=== PATIENT | male | born 1975 | race Caucasian/White ===

== ENCOUNTER 2020-01-17 17:37 | Inpatient (IN) | payer SELFPAY ==
[~2020-01-17] VITALS: Ht 182.9 cm; Wt 83.5 kg
[2020-01-17 18:39] LABS: Basophils # (auto) 0.1 10 ^3/uL (0-0.2); Basophils % (auto) 0.9 % (0.0-2.0); Eosinophils # (auto) 0.2 10 ^3/uL (0-0.8); Eosinophils % (auto) 1.9 % (0.0-7.0); Hematocrit 44.6 % (41.0-53.0); Hemoglobin 15.2 g/dL (13.5-17.5); Lymphocytes # (auto) 1.3 10 ^3/uL (0.4-5.4); Lymphocytes % (auto) 13.7 % (10.0-50.0); Mean Corpuscular Hemoglobin 30.7 pg (28.0-32.0); Mean Corpuscular Volume 90.2 fL (80.0-100.0); Monocytes # (auto) 0.5 10 ^3/uL (0-1.3); Monocytes % (auto) 5.1 % (0.0-12.0); Neutrophils # (auto) 7.3 10 ^3/uL (1.6-8.6); Neutrophils % (auto) 78.4 % (37.0-80.0); Nucleated Red Blood Cells % 0.1 %; Platelet Count (auto) 293 10^3/uL (140-450); Red Blood Cells 4.95 10^6/uL (4.5-5.90); Red Cell Distribution Width 13.2 % (11.8-14.3); White Blood Cell 9.4 10^3/uL (4.4-10.8)
[2020-01-17 18:59] LABS: Albumin 3.8 g/dL (3.4-5.0); BUN/Creatinine Ratio 12.3; Calcium 8.8 mg/dL (8.5-10.1)
[2020-01-17 19:02] LABS: Bilirubin, Total 0.6 mg/dL (0.2-1.0); Total Protein 7.8 g/dL (6.4-8.2)
[2020-01-17 19:09] LABS: Urine WBC None Seen /hpf (0 - 3)
[2020-01-17 19:19] LABS: Urine Amorphous Crystal FEW /hpf (None Seen); Urine Bacteria NONE SEEN /hpf (None Seen); Urine Blood 2+ /uL (Negative); Urine Mucus FEW (None Seen); Urine Specific Gravity 1.025 (1.001-1.035)
[2020-01-17] MEDS ORDERED: SODIUM CHLORIDE 0.9% 1,000 ML IVB ONE (20:11)
[2020-01-17] MEDS ORDERED: KETOROLAC TROMETH 30 MG/ML 1ML VIAL IV ONE (20:15)
[2020-01-17] MEDS ORDERED: ONDANSETRON HCL 4 MG/2 ML VIAL IV ONE (20:15)
[2020-01-17 20:50] LABS: Magnesium 2.5 mg/dL (1.6-2.6)
[2020-01-17] MEDS ORDERED: TAMSULOSIN HYDROCHLORIDE 0.4 MG CAP PO ONE (22:00)
[2020-01-17] MEDS ORDERED: LORazepam 0.5 MG TAB PO PRN (22:30)
[2020-01-17] MEDS ORDERED: DOCUSATE SOD 100 MG CAP PO PRN (22:30)
[2020-01-17] MEDS ORDERED: ACETAMINOPHEN 325 MG TAB PO PRN (22:30)
[2020-01-18] VITALS (7 sets, daily range): BP systolic 109–137; BP diastolic 59–86
[2020-01-18] MEDS: FINASTERIDE 5 MG TAB PO SCH ×2 (00:25→09:29)
[2020-01-18] MEDS: SODIUM CHLORIDE 0.9% 1,000 ML IV SCH ×5 (00:26→17:25)
--- NOTE | 2020-01-18 01:00 | NUR ---
Patient admitted to room 296A Patient A&Ox4, respirations even and non-labored. Patient c/o 7/10 pain to his abdomen radiating to his low back. Assisted patient into gown/socks. Noted IV to the left AC, 20g. Was unable to locate an IV pump, obtained a dial-a-flow and set at 200 ml/hr per EMAR. Orientated patient to room, call light, bathroom, and bed controls. Bed in lowest locked position with 2 side rails up, call light within reach, will continue to monitor Q1hr and PRN.
--- NOTE | 2020-01-18 03:20 | NUR ---
Pain Patient c/o 8/10 low back/abdominal pain. Administered Dilaudid 0.5 mg and zofran 4 mg per EMAR. Will continue to monitor.
[2020-01-18] MEDS: HYDROmorphone HCL 2 MG/ML VL IV PRN ×3 (03:28→11:12)
[2020-01-18] MEDS: ONDANSETRON HCL 4 MG/2 ML VIAL IV PRN ×2 (03:28→08:31)
--- NOTE | 2020-01-18 03:30 | NUR ---
Doty catheter insertion Inserted 16f Doty catheter per physician orders using sterile technique. Attached to thigh, bag hung below patient. Patient tolerated well.
--- NOTE | 2020-01-18 04:10 | NUR ---
Pain reassessed Patient resting with eyes closed, no s/s of distress or SOB. Will continue to monitor.
[2020-01-18 06:51] LABS: Basophils # (auto) 0 10 ^3/uL (0-0.2); Basophils % (auto) 0.2 % (0.0-2.0); Eosinophils # (auto) 0 10 ^3/uL (0-0.8); Eosinophils % (auto) 0.2 % (0.0-7.0); Hematocrit 42.4 % (41.0-53.0); Hemoglobin 14.2 g/dL (13.5-17.5); Lymphocytes # (auto) 1.6 10 ^3/uL (0.4-5.4); Lymphocytes % (auto) 12.5 % (10.0-50.0); Mean Corpuscular Hemoglobin 30.3 pg (28.0-32.0); Mean Corpuscular Hgb Conc. 33.4 g/dL (32.0-36.0); Mean Corpuscular Volume 90.6 fL (80.0-100.0); Monocytes # (auto) 1.2 10 ^3/uL (0-1.3); Monocytes % (auto) 9.4 % (0.0-12.0); Neutrophils % (auto) 77.7 % (37.0-80.0); Platelet Count (auto) 290 10^3/uL (140-450); Red Blood Cells 4.68 10^6/uL (4.5-5.90); Red Cell Distribution Width 13.5 % (11.8-14.3); White Blood Cell 12.8 10^3/uL (4.4-10.8)
--- NOTE | 2020-01-18 07:05 | NUR ---
Pain Patient c/o 8/10 abdominal and low back pain. Administered Dilaudid 0.5 mg per EMAR.
--- NOTE | 2020-01-18 07:10 | NUR ---
Closing shift note Administered pain medication to patient per EMAR. Patient lying still, no SOB or s/s of distress at this time. Endorsed care to day shift RNCatalina.
[2020-01-18 07:15] LABS: Potassium 4.1 mmol/L (3.5-5.1)
[2020-01-18 07:30] LABS: Calcium 7.9 mg/dL (8.5-10.1)
[2020-01-18] MEDS ORDERED: TAMSULOSIN HYDROCHLORIDE 0.4 MG CAP PO SCH (10:00)
[2020-01-18] MEDS: HYDROcodone-ACET 5/325MG TAB PO PRN ×2 (10:44→21:17)
--- NOTE | 2020-01-18 14:52 | NUR ---
patient states he feels complete relief of pain, like the stone might have passed. No stone present in the harrison that can be seen at this time.
[2020-01-18] MEDS ORDERED: cefTRIAXone 1GM/50ML D5W 50 ML IV ONE (16:45)
[2020-01-18] MEDS: CALCIUM CARB 500 MG CHEW TAB PO PRN ×2 (17:00→21:18)
--- NOTE | 2020-01-18 17:15 | NUR ---
harrison discontinued, patient tolerated well. Balloon intact upon removal. Patient used urinal right after removal, approximately 50ml output.
--- NOTE | 2020-01-18 17:17 | NUR ---
WATCH REPAIRER APPRENTICE notified to strain all urine, and patient notified as well, both verbalized understanding.
--- NOTE | 2020-01-18 21:17 | NUR ---
Pain Patient c/o 5/10 pain to the lower abdomin. Administered [place] 5/325 mg per EMAR. Will continue to monitor.
--- NOTE | 2020-01-18 21:45 | NUR ---
Pain reassessed Patient stated that he feels better. Currently 0/10 pain. Will continue to monitor.
--- NOTE | 2020-01-18 23:00 | NUR ---
PATIENT SIGNED OUT AMA Patient stated that he wanted to go home and that he felt fine now. He further stated that he could not stay and needed to go home to be with his children and care for his mother. A discussion regarding the risks/dangers of leaving before the physician(s) could see him and the risks of leaving due to his condition took place. The patient verbalized understanding but still wanted to sign out of the hospital AMA. AMA was signed and the charge nurse was notified. IV was removed with the catheter intact. Patient had his belongings with him. Patient's family waiting downstairs.
[2020-01-19] MEDS ORDERED: cefTRIAXone 1GM/50ML D5W 50 ML IV SCH (09:00)
== END 2020-01-18 23:57 | disposition left against medical advice (07) | DRG 690 ==
LOC: ER 17:37 → WEST WING 17:38
PROVIDERS: ADMIT Hospitalist; ATTEND Hospitalist
DX: N13.6 Pyonephrosis (principal); F17.210 Nicotine dependence, cigarettes, uncomplicated; N17.0 Acute kidney failure with tubular necrosis; N18.9 Chronic kidney disease, unspecified; Z53.29 Procedure and treatment not carried out because of patient's decision for other reasons
CPT/HCPCS: 36415; 71045; 74176; 80048; 80053; 81001; 82150; 83690; 83735; 85025; 87086; G0378; J0696; J1885; J2405

== ENCOUNTER 2020-01-20 23:51 | Emergency (ER) | payer SELFPAY ==
[~2020-01-20] VITALS: Ht 182.9 cm; Wt 77.1 kg
[2020-01-21 01:38] LABS: Basophils # (auto) 0.1 10 ^3/uL (0-0.2); Basophils % (auto) 0.9 % (0.0-2.0); Eosinophils # (auto) 0.1 10 ^3/uL (0-0.8); Eosinophils % (auto) 0.6 % (0.0-7.0); Hematocrit 35.9 % (41.0-53.0); Hemoglobin 12.3 g/dL (13.5-17.5); Lymphocytes # (auto) 1.2 10 ^3/uL (0.4-5.4); Lymphocytes % (auto) 12.4 % (10.0-50.0); Mean Corpuscular Hemoglobin 30.6 pg (28.0-32.0); Mean Corpuscular Hgb Conc. 34.2 g/dL (32.0-36.0); Mean Corpuscular Volume 89.5 fL (80.0-100.0); Monocytes # (auto) 0.7 10 ^3/uL (0-1.3); Monocytes % (auto) 7.8 % (0.0-12.0); Neutrophils # (auto) 7.3 10 ^3/uL (1.6-8.6); Neutrophils % (auto) 78.3 % (37.0-80.0); Platelet Count (auto) 274 10^3/uL (140-450); Red Blood Cells 4.02 10^6/uL (4.5-5.90); Red Cell Distribution Width 13.5 % (11.8-14.3); White Blood Cell 9.3 10^3/uL (4.4-10.8)
[2020-01-21 01:54] LABS: Albumin 3.1 g/dL (3.4-5.0); BUN/Creatinine Ratio 12.5; Calcium 8.6 mg/dL (8.5-10.1); Potassium 4.1 mmol/L (3.5-5.1)
[2020-01-21 01:56] LABS: Bilirubin, Total 0.2 mg/dL (0.2-1.0)
[2020-01-21 04:07] VITALS: BP 127/80
== END 2020-01-21 05:30 | disposition left against medical advice (07) ==
LOC: ER 23:52
DX: R10.9 Unspecified abdominal pain (principal); Z53.21 Procedure and treatment not carried out due to patient leaving prior to being seen by health care provider
CPT/HCPCS: 36415; 74176; 80053; 85025